=== PATIENT | male | born 1985 | race African-American/Black ===

== ENCOUNTER 2017-03-02 17:16 | Emergency (ER) | payer OTHER ==
[~2017-03-02] VITALS: Ht 177.8 cm; Wt 115.7 kg
[2017-03-02 19:29] VITALS: BP 143/90
== END 2017-03-02 19:30 | disposition home or self-care (01) ==
LOC: ER 17:16
DX: Z47.89 Encounter for other orthopedic aftercare (principal); F17.210 Nicotine dependence, cigarettes, uncomplicated; F10.99 Alcohol use, unspecified with unspecified alcohol-induced disorder